=== PATIENT | female | born 1965 | race Caucasian/White ===

== ENCOUNTER 2016-12-12 08:14 | Emergency (ER) | payer BC ==
[~2016-12-12 08:14] MED LIST: TOPAMAX25 PO; TRIVORA-28 PO; ZOL100 PO
== END 2016-12-12 13:25 | disposition home or self-care (01) ==
LOC: ER 08:14
DX: R07.89 Other chest pain (principal); R11.10 Vomiting, unspecified; F10.10 Alcohol abuse, uncomplicated; J45.909 Unspecified asthma, uncomplicated; I10 Essential (primary) hypertension; F17.200 Nicotine dependence, unspecified, uncomplicated; Z88.0 Allergy status to penicillin; Z79.899 Other long term (current) drug therapy
CPT/HCPCS: 73080-RT; 73200-RT; 90471; 90714; 99284; A9270-GY